=== PATIENT | female | born 1995 | race Two or more races ===

== ENCOUNTER 2016-12-03 14:16 | Emergency (ER) | payer MEDICAID ==
[~2016-12-03] VITALS: Ht 152.4 cm; Wt 54.4 kg
[2016-12-03 14:39] VITALS: BP 142/70
== END 2016-12-03 16:06 | disposition home or self-care (01) ==
LOC: ER 14:16
DX: S20.212A Contusion of left front wall of thorax, initial encounter (principal); V43.52XA Car driver injured in collision with other type car in traffic accident, initial encounter; Y93.89 Activity, other specified; Y92.89 Other specified places as the place of occurrence of the external cause; Y99.8 Other external cause status
CPT/HCPCS: 72070

== ENCOUNTER 2023-07-04 07:55 | Emergency (ER) | payer MEDICAID ==
[~2023-07-04] VITALS: Ht 152.4 cm; Wt 60.2 kg
[2023-07-04 09:45] LABS: Urine Bacteria NONE SEEN /hpf (None Seen); Urine Blood Negative /uL (Negative); Urine Clarity HAZY (Clear); Urine Color Colorless (Yellow); Urine Protein, UAD Negative (Negative); Urine Specific Gravity 1.018 (1.001-1.035); Urine Urobilinogen Normal (Negative); Urine WBC 16 /hpf (0 - 5)
[2023-07-04 10:06] VITALS: BP 109/62; PULSE 86; RESP 18; TEMP 97; O2SAT 99
[2023-07-04] MEDS ORDERED: NITR-87 PO (10:57)
== END 2023-07-04 11:16 | disposition home or self-care (01) ==
LOC: ER 07:55
DX: N30.90 Cystitis, unspecified without hematuria (principal); Z32.02 Encounter for pregnancy test, result negative
CPT/HCPCS: 71101; 72100; 81001; 81025